=== PATIENT | female | born 1940 | race Caucasian/White ===

== ENCOUNTER → 2016-09-23 | Outpatient (CLI) | payer MEDICARE ==
[~2016-09-23] MED LIST: ALLEGRA180 MG PO; ASPIRIN LO-DOSE81 MG PO; CALCIUM 600 +1 EAC6 PO; CEFTIN500 MG PO; CORDARONE,PACE200 MG PO; COUMADIN ** 9/62 MG PO; CRESTOR40 MG PO; FIBERCON1 TAB PO; FISH OIL300 MG PO; FLONASE 50 MCG/16 GM NOSE; HYDRODIURIL25 MG PO; K-TAB ER20 MEQ; LASIX40 MG PO; NORVASC5 MG PO; POTASSIUM CHLO10 MEQ PO; RESTASIS MULTI5.5 ML OPHTH; ROBITUSSIN DM120 ML PO; THERA-VITE W/ B1 TAB PO; TYLENOL325 MG PO; ZAROXOLYN2.5 MG PO; ZESTRIL40 MG PO; ZITHROMAX250 MG PO
--- NOTE | ~2016-09-23 | PUL ---
PATIENT'S NAME: GEORGIA WONG [facility] AGE: 75 Y [address] ROOM: [place] [address] LOCATION: [facility] ADMIT DATE: 09/23/2016 Pulmonary DISCHARGE DATE: FAMILY PHYSICIAN: Merritt Don MD ATTENDING PHYSICIAN: SONNY IRVING NAME OF PROCEDURE: Six Minute Walk Test DATE OF PROCEDURE: September 23, 2016 TECH: LOKESH Jacobson REASON FOR EXAM: Medication usage RESULTS: The patient walked for 1165 feet at a pace of 2.2 miles/hour. The test was performed on room air. Her oxygen saturations were 97% of the at the beginning of the test ,then dropped to 80% during the test, then were 81% after the test. She had appropriate increases in her heart rate and blood pressure. She had no periods of rest. Her perceived dyspnea was 2/10 on the Channing scale. PHYSICIAN INTERPRETATION: The patient has no significant exercise limitations although she has significant desaturation and hypoxia on room air during exercise. MD MAGNOLIA SCHAEFFER/ayaan /[id number] dtt: 09/28/16 0754 NGOC RADU F dtd: 09/27/16 1037
--- NOTE | ~2016-09-23 | PUL ---
PATIENT'S NAME: GEORGIA WONG [facility] AGE: 75 Y [address] ROOM: [place] [address] LOCATION: [facility] ADMIT DATE: 09/23/2016 Pulmonary DISCHARGE DATE: FAMILY PHYSICIAN: Merritt Don MD ATTENDING PHYSICIAN: SONNY IRVING NAME OF PROCEDURE: Pulmonary Function Test DATE OF PROCEDURE: September 23, 2016 TECH: LOKESH Jacobson REASON FOR EXAM: Medication usage RESULTS: 1. FVC was 2.08 liters which is 87% of predicted and normal, FEV1 was 1.52 liters which is 86% of predicted and normal, and FEV1/FVC was 73% and normal. The flow volume curve did not reveal any significant airflow limitation. After bronchodilator administration FVC decreased to 2 liters, FEV1 decreased to 1.51 liters and FEV1/FVC was 76%. 2. DLCO was 11.5 with an adjusted DLCO of 12.2 which is 67% of predicted and normal. 3. Total lung capacity was 4.53 liters which is 109% of predicted and normal, and residual volume was 2.45 liters which is 140% of predicted and within normal limits for patient's demographics. PHYSICIAN INTERPRETATION: The patient has no airflow limitation and no significant bronchodilator response. Her diffusion capacity is normal. There is no evidence of restrictive lung disease. MD MAGNOLIA SCHAEFFER/ayaan /[id number] dtt: 09/28/16 0752 NGOC RADU F dtd: 09/27/16 1030
[2016-09-23 12:33] LABS: BASOPHIL % 0.7 %; EOSINOPHIL # 0.2 K/uL (0.0-0.5); EOSINOPHIL % 3.3 %; HEMOGLOBIN 11.9 g/dL (10.0-15.0); IMMATURE GRANULOCYTE % 0.3 %; LYMPHOCYTE # 1.7 K/uL (0.8-4.0); LYMPHOCYTE % 28.3 %; MCH 26.7 pg (27.0-34.0); MCHC 32.2 gm/dL (32.0-36.5); MCV 83.1 fl (83.0-98.0); MONOCYTE # 0.6 K/uL (0.0-1.0); MONOCYTE % 9.3 %; MPV 9.3 fl (9.4-12.4); NEUTROPHIL # (ANC) 3.5 K/uL (1.8-7.8); NEUTROPHIL % 58.1 %; NRBC % 0 /100WBC (0-0.00); PLATELET COUNT 175 K/uL (150-450); RBC 4.45 M/uL (3.50-5.50); RDW-CV 15.7 % (11.9-14.6)
[2016-09-23 12:54] LABS: ALBUMIN 3.5 gm/dL (3.5-5.0); ANION GAP 11.6 (10.0-19.0); CALCIUM 9.3 mg/dL (8.5-10.5); CREATININE 1.8 mg/dL (0.5-1.1); POTASSIUM 3.6 mMol/L (3.7-5.1); TOTAL BILIRUBIN 1.1 mg/dL (0.0-1.5); TOTAL PROTEIN 7.5 g/dL (6.0-8.4)
== END | disposition disaster alternative care site (69) ==
LOC: GLAB 11:59
PROVIDERS: Internal Medicine Interventional Cardiology
DX: Z51.81 Encounter for therapeutic drug level monitoring (principal); Z79.899 Other long term (current) drug therapy; I51.7 Cardiomegaly

== ENCOUNTER → 2016-09-28 | Outpatient (CLI) | payer MEDICARE ==
[2016-09-28 10:04] LABS: ANION GAP 10.3 (10.0-19.0); CALCIUM 9.3 mg/dL (8.5-10.5); CREATININE 1.7 mg/dL (0.5-1.1); POTASSIUM 3.3 mMol/L (3.7-5.1)
== END | disposition disaster alternative care site (69) ==
LOC: GRAD 09:29
PROVIDERS: Internal Medicine Interventional Cardiology
DX: N18.9 Chronic kidney disease, unspecified (principal); N28.89 Other specified disorders of kidney and ureter

== ENCOUNTER → 2016-09-28 | Outpatient (CLI) | payer MEDICARE | END | disposition disaster alternative care site (69) | LOC: LGSMG 11:32 | DX: N18.4 Chronic kidney disease, stage 4 (severe) (principal) ==

== ENCOUNTER → 2016-10-03 | Outpatient (CLI) | payer MEDICARE ==
[2016-10-03 16:35] LABS: ANION GAP 12.8 (10.0-19.0); CALCIUM 8.9 mg/dL (8.5-10.5); CREATININE 1.6 mg/dL (0.5-1.1); POTASSIUM 3.8 mMol/L (3.7-5.1)
== END | disposition disaster alternative care site (69) ==
LOC: LNHI 16:03
PROVIDERS: Internal Medicine Interventional Cardiology
DX: R53.83 Other fatigue (principal); R63.5 Abnormal weight gain

== ENCOUNTER 2016-10-09 10:41 | Emergency (ER) | payer MEDICARE ==
--- NOTE | ~2016-10-09 | ER ---
PATIENT'S NAME: GEORGIA WONG [facility] AGE: 75 Y [address] ROOM: [place] [address] LOCATION: [facility] ADMIT DATE: 10/09/2016 ER/Outpatient Report DISCHARGE DATE: 10/09/2016 FAMILY PHYSICIAN: Merritt Don MD ATTENDING PHYSICIAN: Vin Glez TIME OF ARRIVAL: 1041 hours. TIME OF EVALUATION: 1043 hours. CHIEF COMPLAINT: Low heart rate. HISTORY OF PRESENT ILLNESS: The patient is a 75-year-old female who presents to the emergency department today with a chief complaint of low heart rate. She reports that she was started on a beta-vinicio yesterday after seeing Dr. Patton on Monday, and when she checked her heart rate, it was in the 30s. She became concerned and came to the emergency department for further evaluation. She reports she has been having issues with shortness of breath with exertion for quite some time, and this is why the patient has been getting workups at Cardiology over the past few weeks. She reports she had an echocardiogram 2 weeks ago. She does report that they have been adjusting her medications. Denies any fevers or chills. No nausea or vomiting. No chest pain. No shortness of breath. No other concerns at this time. She actually feels at her baseline that she has been feeling over the past few months. PAST MEDICAL HISTORY: Paroxysmal atrial fibrillation, HOCM, with increased LVOT gradient at rest; chronic kidney disease, stage 3; hypertension; and diastolic congestive heart failure. PAST SURGICAL HISTORY: Cataract surgery. SOCIAL HISTORY: The patient denies any tobacco use. Reports occasional alcohol use. Denies any illicit drug use. ALLERGIES: NO KNOWN DRUG ALLERGIES. MEDICATIONS: PATIENT'S NAME: GEORGIA WONG [facility] AGE: 75 Y [address] ROOM: [place] [address] LOCATION: [facility] ADMIT DATE: 10/09/2016 ER/Outpatient Report DISCHARGE DATE: 10/09/2016 FAMILY PHYSICIAN: Merritt Don MD ATTENDING PHYSICIAN: Vin Glez Please see list. REVIEW OF SYSTEMS: All systems are reviewed by myself and are negative with the exception of those discussed in the HPI and Past Medical History. PHYSICAL EXAMINATION: VITAL SIGNS: Weight 73.9 kg, blood pressure 128/65, pulse 41, respiratory rate 16, temperature 97.5, and oxygen saturation 99% on room air. GENERAL: The patient is a 75-year-old female who appears stated age, in no acute distress at this time. HEENT: Normocephalic, atraumatic. Pupils are equal, round, and reactive to light. NECK: Supple. There is no nuchal rigidity. CARDIOVASCULAR: Bradycardic. Positive murmur. No rubs or gallops. LUNGS: Clear to auscultation bilaterally. No wheezes, rales, or rhonchi. ABDOMEN: Soft, nontender, and nondistended. No rebound, rigidity, or guarding. MUSCULOSKELETAL: The patient moves all 4 extremities. SKIN: Warm and dry. There are no rashes or lesions noted. LABS AND X-RAYS: CBC is normal. EKG was obtained, is interpreted by myself, and shows junctional rhythm with a rate of 34, left axis deviation, QTc of 45. No ST elevation. There is ST depression in V5 and V6 which is not changed from 07/25/2014. Chest x-ray shows stable cardiomegaly. PTT is 36, PT is 17.8, and INR is 1.6. CMP is unremarkable except for BUN 29 and creatinine 1.7. AST is 57 and ALT is normal. Magnesium is normal. Cardiac enzymes are normal. ProBNP is 6027. IMPRESSION: 1. Asymptomatic bradycardia. 2. Chronic kidney disease, stage 3. 3. Initial visit. EMERGENCY DEPARTMENT COURSE: The patient was brought back to the examination room. Seen and evaluated by myself. IV was established. Laboratory analysis and imaging were obtained as described above. The patient is asymptomatic with this bradycardia. She does report that she took the metoprolol for the first time yesterday. This is 25 mg p.o. daily, extended release. The patient does have a history of bradycardia in the past. Cardiac workup is essentially unremarkable or unchanged from previous. I have contacted Dr. Sanabria with Cardiology who is on-call for the patient's primary auto damage trainee, Dr. Patton, and discussed the case with him. He has recommended followup with Dr. Evans tomorrow in the PATIENT'S NAME: GEORGIA WONG [facility] AGE: 75 Y [address] ROOM: [place], [place] [address] LOCATION: [facility] ADMIT DATE: 10/09/2016 ER/Outpatient Report DISCHARGE DATE: 10/09/2016 FAMILY PHYSICIAN: Merritt Don MD ATTENDING PHYSICIAN: Vin Glez clinic as she is asymptomatic at this time. Her heart rate is now in the upper forties. I have discussed the results with the patient and her friend who is at bedside. She does wish to go home at this time. I have recommended rest. No exertion. She is to follow up with Dr. Evans tomorrow in the clinic. I have discussed return to care instructions including chest pain, shortness of breath, syncope, near syncope, or any other concerns, to return to the emergency department as soon as possible. The patient is agreeable. Her friend is agreeable without further questions at this time. DISPOSITION: The patient is discharged to home in good condition. DO HUMERA ARANDA/modl /[id number] d: 10/09/16 1534 t: 10/11/16 0757, OUTPATIENT REPORT
[~2016-10-09 10:41] MED LIST changes: -LASIX40 MG PO; -RESTASIS MULTI5.5 ML OPHTH; -ZAROXOLYN2.5 MG PO
[2016-10-09 11:02] LABS: BASOPHIL % 0.6 %; EOSINOPHIL # 0.2 K/uL (0.0-0.5); EOSINOPHIL % 2.2 %; HEMATOCRIT 36.9 % (33.0-46.0); HEMOGLOBIN 11.4 g/dL (10.0-15.0); IMMATURE GRANULOCYTE % 0.3 %; LYMPHOCYTE # 1.7 K/uL (0.8-4.0); LYMPHOCYTE % 24.8 %; MCHC 30.9 gm/dL (32.0-36.5); MCV 84.2 fl (83.0-98.0); MONOCYTE # 0.7 K/uL (0.0-1.0); MONOCYTE % 10.7 %; MPV 9.1 fl (9.4-12.4); NEUTROPHIL # (ANC) 4.3 K/uL (1.8-7.8); NEUTROPHIL % 61.4 %; NRBC % 0 /100WBC (0-0.00); PLATELET COUNT 152 K/uL (150-450); RBC 4.38 M/uL (3.50-5.50); WBC 6.9 K/uL (4.0-11.0)
[2016-10-09 11:11] LABS: INR - (THERAPEUTIC) 1.6 (0.9-1.1); PROTIME 17.8 SECONDS (9.6-11.1); PTT 36 SECONDS (25-32)
[2016-10-09 11:21] LABS: ALBUMIN 3.4 gm/dL (3.5-5.0); ALK PHOS 86 IU/L (33-138); ALT 45 IU/L (12-78); ANION GAP 13.9 (10.0-19.0); AST 57 IU/L (10-40); BLOOD UREA NITROGEN 29 mg/dL (6-24); CALCIUM 8.8 mg/dL (8.5-10.5); CHLORIDE 104 mMol/L (96-110); CO2 28 mMol/L (22-32); CPK 148 IU/L (21-215); CREATININE 1.7 mg/dL (0.5-1.1); ESTIMATED GFR (MDRD EQUATION) 29; MAGNESIUM 2.6 mg/dL (1.3-2.6); POTASSIUM 3.9 mMol/L (3.7-5.1); SODIUM 142 mMol/L (135-145); TOTAL BILIRUBIN 0.9 mg/dL (0.0-1.5); TOTAL PROTEIN 7.2 g/dL (6.0-8.4)
== END 2016-10-09 13:08 | disposition disaster alternative care site (69) ==
LOC: GMED 10:41
PROVIDERS: Emergency Medicine
DX: R00.1 Bradycardia, unspecified (principal); I13.0 Hypertensive heart and chronic kidney disease with heart failure and stage 1 through stage 4 chronic kidney disease, or unspecified chronic kidney disease; N18.3 Chronic kidney disease, stage 3 (moderate); I50.30 Unspecified diastolic (congestive) heart failure; I48.0 Paroxysmal atrial fibrillation; Z79.01 Long term (current) use of anticoagulants; Z79.899 Other long term (current) drug therapy

== ENCOUNTER → 2016-10-13 | Outpatient (CLI) | payer MEDICARE ==
[~2016-10-13] MED LIST changes: +LASIX40 MG PO; +RESTASIS MULTI5.5 ML OPHTH; +ZAROXOLYN2.5 MG PO
== END | disposition disaster alternative care site (69) ==
LOC: LGSMG 14:00
DX: N17.9 Acute kidney failure, unspecified (principal); N18.9 Chronic kidney disease, unspecified

== ENCOUNTER → 2016-10-17 | Outpatient (CLI) | payer MEDICARE ==
--- NOTE | ~2016-10-17 | ESTC ---
Cardiac Perfusion Imaging Demographics Patient Name JUDITH Millan Gender Female Patient Number [id number] Race Visit Number [id number] Ethnicity Corporate ID Room Number Accession Number [id number] Height 61 inches Date of 1940 Weight 158 pounds Booker Interpreting Physician Nathan Date of study 10/17/2016 Booker Supervising /SINTIA GOLDEN Technologist Cande Celeste Ordering Physician Nathan Stress Booker weight reducing technician Stress ECG Reading Nathan Nurse Ghada Verduzco RN Physician Booker The procedure was explained in detail to the patient. Risks, complications and alternative treatments were reviewed. Written consent was obtained. Medications Reviewed with Patient prior to Procedure. Procedure Admit Source:Other. Procedure Type: Nuclear Stress Test:Pharmacological, Lexiscan, Cardiolite Stress Test Procedure Start time: 10/17/2016 00:00 Indications: Chest pain and Dyspnea with exertion. Risk Factors The patient risk factors include:peripheral arterial disease, hypercholesterolemia, family history of premature CAD and renal failure. Conclusions Summary Perfusion Images: The overall quality of the study is good. Left ventricular cavity is noted to be normal on the stress and rest studies. There is no evidence of abnormal lung activity. The right ventricle is not visualized and cannot be assessed. Stress SPECT images demonstrate homogenous tracer distribution throughout the myocardium except for a mild decrease uptake in the area involving the basal and mid anterior wall on rest images likely due to artifact. Gated SPECT imaging reveals normal myocardial thickening and wall motion. The left ventricular ejection fraction was calculated to be 68%. Impression Pt had resting bradycardia (junctional rhythm) and did not achieve target heart rate with exercise stress test with Rivera protocol. Exercise was stopped due to fatgue. The stress test was then changed to regadenoson stress test. ECG portion of stress test is clinically negative for ischemia by diagnostic criteria. Myocardial perfusion imaging is probably normal. The anterior wall defect worse on rest images is consistent with artifact. Overall left ventricular systolic function was normal without regional wall motion abnormalities. Clinical correlation is recommended. Evaluate patient for need for pacemaker Stress Protocols Resting ECG Junctional rhythm at 56 bpm, Poor R wave progression in anterior leads Resting HR:56 bpm Pre-stress physical exam: AOx 3, states becomes short of breath with activity/walking. Started with a treadmill and she had to stop in stage 2 due to extreme shortness of breath. Peak heart rate was 88 bpm. The quality of EKG tracings during exercise was suboptimal. No significant ST-T wave changes were seen. She denied any chest pain. Her heart rhythm was observed to be sinus rhythm with PACs during recovery. Changed test to Nicki scan due to patient not being able to reach target heart rate. Stress Protocol:Pharmacologic - Lexiscan Peak HR:91 bpm HR/BP product:[id number] Peak BP:149/86 mmHg Predicted HR: 143 bpm % of predicted HR: 64 Test duration: 00:06 min Reason for termination:Infusion complete ECG Findings No ECG changes suggestive of ischemia. Arrhythmias Sinus rhythm with PACs and junctional rhythm Symptoms Shortness of breath. Stress Interpretation ECG portion of stress test is negative for ischemia by diagnostic criteria. Pt was not able to reach target heart rate by Rivera protocol and developed dyspnea. Patient getting holter monitor to evaluate heart rate and arrhythmias and to evaluate for need for pacemaker. Discussed in detail with patient and her daughter. Imaging Results Summed scores - Summed stress score: 6 - Summed rest score: 4 - Summed difference score: 2 Stress ejection Ejection fraction:68 % EDV :137 ml ESV :44 ml Stroke volume :93 ml LV mass :169 gr Imaging Protocols Rest Stress Isotope:Tc99m Sestamibi IV Isotope: Tc99m Sestamibi IV Isotope dose:10.1 mCi Isotope dose:29.6 mCi Date:10/17/2016 07:05 Date:10/17/2016 09:25 Technique: SPECT Technique: Gated Supine SPECT Supine Scan Time:45-60 minutes post Scan Time:45-60 minutes post injection injection Procedure Medications - Regadenoson (Lexiscan) 0.4 mg IV over 10-15 sec. I.V. 0.4 mg. Medical History Admission Data Admission date: 10/17/2016 Admission Time: 06:42 Hospital Status: Outpatient. Signatures dtt: BOOKER ERAZO dtd: 10/17/16 0000 Physician Self Edit
== END | disposition disaster alternative care site (69) ==
LOC: GRAD 06:42
DX: I25.10 Atherosclerotic heart disease of native coronary artery without angina pectoris (principal); I73.9 Peripheral vascular disease, unspecified; R00.1 Bradycardia, unspecified; R06.00 Dyspnea, unspecified; R53.83 Other fatigue; E78.00 Pure hypercholesterolemia, unspecified; Z82.49 Family history of ischemic heart disease and other diseases of the circulatory system
CPT/HCPCS: A9500; J0280; J0461; J2785

== ENCOUNTER → 2016-11-11 | Outpatient (CLI) | payer MEDICARE | LOC: LGSMG 13:02 | DX: N17.9 Acute kidney failure, unspecified (principal); N18.9 Chronic kidney disease, unspecified ==

== ENCOUNTER 2016-11-15 13:36 | Inpatient (IN) | payer MEDICARE ==
[~2016-11-15] VITALS: Ht 156.2 cm; Wt 69.0 kg
--- NOTE | ~2016-11-15 | CON ---
PATIENT'S NAME: GEORGIA WONG [facility] AGE: 75 Y [address] ROOM: [id number] [place], [place] [address] LOCATION: [facility] ADMIT DATE: 11/15/2016 Consultation DISCHARGE DATE: FAMILY PHYSICIAN: Merritt Don MD ATTENDING PHYSICIAN: Kilo Harley DATE OF CONSULTATION: 11/15/2016 REFERRING PHYSICIAN: AIDE MARTEL REASON FOR CONSULTATION: ALFONSO on CKD, hypokalemia. REFERRING PHYSICIAN: Kilo Harley MD. 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 The patient's blood pressure was also above the acceptable range at that time. We discontinued amlodipine and started on losartan; however, she started to feel bad and she had significant shortness of breath, came to see her Dr. Harley in the [facility], found to have a creatinine of 1.91 from a baseline of 1.5 and was also found to have significant hypokalemia. The patient was admitted subsequently to [facility] for further management and evaluation. During my evaluation, the patient does not have any more signs of fluid overload, does not have a JVD. Lung sounds clear without any significant bibasilar crackles or any other signs of volume overload. No dependent edema; however, the patient continues to complain of shortness of breath. The patient apparently was taking a high dose of Lasix, but did not pick pack worker her metolazone since last seen, although she has mentioned to Dr. Harley that she has not filled up her losartan prescription, but she mentioned that she is now currently taking the losartan. Her blood pressure today in the clinic and also in the hospital was in the 140s. She denied any significant chest pain or any palpitation; however, mentioned about some orthopnea over the last few days. She denied any urinary symptoms including dysuria, urgency, hesitancy, or nocturia. Regarding renal function, her creatinine was 0.8-1.1 till July 2015; September 2016, her creatinine went up to 1.8, possibly with aggressive dialysis. We held the dialysis and creatinine subsequently improved to 1.44, but she had become volume overloaded, we had to hold the diuretic, creatinine went up to 1.5 after starting the diuretic and as mentioned above, the creatinine was 1.91 at an outside facility after increasing the dose of Lasix. UA shows 2+ protein and 1+ blood with a PC ratio of 0.7.PATIENT'S NAME: GEORGIA WONG [facility] AGE: 75 Y [address] ROOM: [place] [address] LOCATION: [facility]PCU ADMIT DATE: 11/15/2016 Consultation DISCHARGE DATE: FAMILY PHYSICIAN: Merritt Don MD ATTENDING PHYSICIAN: Kilo Harley REVIEW OF SYSTEMS: GENERAL: No fever. No chills or rigor. HEENT: No sore throat. No sinus congestion. CVS: No chest pain. Shortness of breath as mentioned in the HPI. Currently, no significant leg swelling; however, the patient has apparently had significant leg swelling on Monday. RESPIRATORY: Shortness of breath and chronic cough. No significant wheezing. GENITOURINARY: No pain with urination. No increased frequency. No nocturia. GASTROINTESTINAL: No abdominal pain. No abdominal distention. No nausea or vomiting. NEUROLOGIC: No weakness. No seizures. SKIN: No rash. No itching. ALLERGIES: No seasonal allergy. No hayfever. ENDOCRINE: No heat intolerance. No cold intolerance. PSYCHIATRIC: No sadness. No crying spells. No history of panic attack. PAST MEDICAL HISTORY: 1. Hypertension for 30 years. 2. Coronary artery disease, status post PCI x2. 3. Peripheral vascular disease. 4. Atrial fibrillation. 5. Chronic cough. 6. Hypertrophic cardiomyopathy without features of obstruction. 7. CKD stage 3 with some proteinuria. PAST SURGICAL HISTORY: 1. Cataract surgery. 2. Heart catheterization with stent placement in 2012. MEDICATIONS: 1. Amiodarone 100 mg daily. 2. Losartan 12.5 mg daily. 3. Aspirin 81 mg daily. 4. Vicenta p.r.n. 5. Citracal/vitamin D 1 tab daily. 6. Crestor 40 mg daily. 7. Fexofenadine 180 mg daily. 8. Fiber-Caps fish oil 1000 mg capsule daily. 9. Fish oil omega-3 one capsule daily. 10. Fluticasone 2 sprays once daily. 11. Lasix 20 mg once a day, which has been increased to 40 mg on Monday. 12. Multivitamin 1 tablet daily. 13. Potassium chloride 20 mEq p.o. daily. 14. Warfarin 2 mg p.o. daily.PATIENT'S NAME: GEORGIA WONG [facility] AGE: 75 Y [address] ROOM: [place] [address] LOCATION: [facility]PCU ADMIT DATE: 11/15/2016 Consultation DISCHARGE DATE: FAMILY PHYSICIAN: Merritt Don MD ATTENDING PHYSICIAN: Kilo Harley ALLERGIES: NORVASC AND ALDACTONE. SOCIAL HISTORY: Drinks alcohol socially. No significant history of smoking or illicit drug use. FAMILY HISTORY: Significant for cancer, coronary artery disease, type 2 diabetes, and hypertension, but no significant history of renal failure or dialysis. OBJECTIVE: VITAL SIGNS: Blood pressure 140s/70s, heart rate in 60s, respiratory rate 14, and temperature 98.2. PHYSICAL EXAMINATION: GENERAL: Not in apparent distress. HEAD: Moist mucous membranes. Bilateral PERRLA, EOMI. NECK: No JVD, thyromegaly, or lymphadenopathy. CVS: S1 and S2 normal, regular rate and rhythm. No murmur, rub, or gallop. CHEST: Bilateral air entry equal. No wheeze or rales. ABDOMEN: Soft, nontender, nondistended. Bowel sounds present. EXTREMITIES: No cyanosis, clubbing, jaundice. No dependent edema. MUSCULOSKELETAL: No limitation of range of motion. SKIN: No pallor, cyanosis, icterus. FLUORESCENT SOLUTION MIXER: Alert and oriented x3. No gross findings. ASSESSMENT/PLAN: 1. Acute kidney injury on chronic kidney disease. ALFONSO query secondary to overdiuresis; however, the patient had significant fluid overload on her last clinic visit. We increased the Lasix to 40 daily instead of 20 daily and started on metolazone 2.5 daily; however, the patient never filled up metolazone, so the patient is currently only taking Lasix 40 daily. Today, does not have any dependent edema, but still continues to have significant shortness of breath. We will send a UA, urine lytes including sodium, potassium, creatinine osmolality. We will put a Hare and maintain it for strict intake and output monitoring. We will get daily standing weight. Avoid nephrotoxic exposure. Avoid hemodynamic instability and may keep MAP more than 65. Regarding chronic kidney disease, she has proteinuric CKD, possibly with a baseline around 1.5. Although she has hypertension for long time, but her hypertension was never severe enough to properly explain this degree of kidney disease. She had no history of apparent nephrotoxic exposure in the past. We are contemplating doing a kidney biopsy to rule out any other potential alternative etiology. Serology workup and infectious workup which has been sent from the clinic is currently pending. For renal protection as well as blood pressure control, we started the patient on losartan as the patient complained of cough with lisinopril; however, in the context of an ALFONSO, we will hold the losartan for now and may restart when her renal function returns back to her baseline.PATIENT'S NAME: GEORGIA WONG [facility] AGE: 75 Y [address] ROOM: [place] [address] LOCATION: [facility]PCU ADMIT DATE: 11/15/2016 Consultation DISCHARGE DATE: FAMILY PHYSICIAN: Merritt Don MD ATTENDING PHYSICIAN: Kilo Harley 2. Shortness of breath, questionable etiology. I do not think that she is volume overloaded at this point. Has no dependent edema, no JVD, dry mucous membrane, and lung sounds clear without any significant bibasilar rales. We will get an echocardiogram to see biventricular function as well as volume status. We would like to get an evaluation from Cardiology here to comment about her heart failure and possible treatment. The patient also carries the diagnosis of query amiodarone toxicity and she was worked up in the past with PFT, a 6-minute walk test, and chest CT scan. We may need to get evaluation from Pulmonary team as well. 3. Hypokalemia. The patient could not tolerate IV potassium supplementation, we will switch to p.o. supplementation, and we will closely monitor the patient's clinical status and heart rate. 4. Proteinuria. As mentioned above, the patient has 0.7 g proteinuria with a baseline creatinine of 1.5. I would like to do a renal biopsy to rule out any other potential etiology other than hypertensive nephrosclerosis. Serologic and infectious workup for other glomerulonephritis is pending. Thank you for allowing me to participate in this patient's care. We will closely monitor the patient's progress along with you. AIDE MARTEL MD /modl /[id number] d: 11/16/16 0013 t: 11/18/16 1432, CONSULTATION REPORT
--- NOTE | ~2016-11-15 | ECHO ---
Transthoracic Echocardiography Report (TTE) Demographics Patient Name GEORGIA OWNG Date of Study 11/16/2016 Patient Number [id number] Visit Number [id number] Date of 1940 Room Number G6306 Accession Number [id number] Gender Female Age 75 year(s) Referring Florencia Pagan Film Splicer Stepan Brown RVT Physician MD Cherri Boles MD Physician Interpreting [place] Prospecting Driller Helper Physician Sanjuana HANSON Supervising Ordering Physician Kapil Boles MD/SINTIA HANSON Nurse Stress Teacher Of The Visually Impaired Conclusions Contractility Score Summary Normal Left Ventricular contractility was noted. Summary The estimated left ventricular ejection fraction is 55-60%. Hypertrophic obstructive cardiomyopathy. Resting LVOT velocity is 3.8 m/s, with a peak gradient of 58 mmHg, and mean gradient of 26 mmHg suggestive of left ventricular outflow tract obstruction at rest. Severe concentric left ventricular hypertrophy. Diastolic flow assessment reveals a pseudonormal pattern consistent with Grade II diastolic dysfunction . The left atrium is severely dilated by LA volume index measurement. Procedure Type of Study TTE procedure:2D Echocardiogram. Procedure Date Date: 11/16/2016 Start: 08:48 AM Study Location: Inpatient Portable Technical Quality: Adequate visualization Additional Indications:volume status heart failure Appropriate Use Criteria: 9 Patient Status: Routine HR: 43 bpm BP: 128/60 mmHg M-Mode/2D Measurements LV Diastolic Dimension: 4.05 cm LV Systolic Dimension: 2.26 cm LV Septum Diastolic: 1.82 cm LV PW Diastolic: 1.76 cm AO Root Dimension: 2.1 cm Cardiac Output: 8.38 l/min AV Cusp Separation: 1.4 cm RV Diastolic Dimension: 1.95 cm LA volume: 131 ml LVOT: 2 cm RV Base: 2.4 cm LVOT VTI: 62.1 cm RV Mid: 2.18 cm LV Stroke volume: 194.99 ml TAPSE: 2.39 cm TDI-S': 15.1 cm/s Doppler Measurements AV Peak Velocity: 2.78 m/s MV Peak E-Wave: 1.25 m/s AV Peak Gradient: 30.91 mmHg MV Peak A-Wave: 1.04 m/s AV Mean Gradient: 14 mmHg MV E/A Ratio: 1.2 LVOT Peak Velocity: 0.93 m/s MV P1/2t: 155 msec TR Gradient:28.09 mmHg PV Peak Velocity: 0.87 m/s Estimated RAP:10 mmHg PV Peak Gradient: 3.01 mmHg Estimated RVSP: 38 mmHg Estimated PASP: 38.09 mmHg E' Septal Velocity: 0.03 m/s A' Septal Velocity: 0.05 m/s E' Lateral Velocity: 0.05 m/s A' Lateral Velocity: 0.07 m/s Findings Left Ventricle Severe concentric left ventricular hypertrophy. Diastolic assessment reveals Grade II pseudonormal diastolic function . Right Ventricle Normal right ventricle structure and function. Left Atrium The left atrium is severely dilated by LA volume index measurement. Right Atrium IVC measures 1.04 cm with inspiratory collapse. Mitral Valve Moderate to severe mitral annular calcification. Mild mitral regurgitation by color Doppler. Aortic Valve The aortic valve is mildly sclerotic. Resting LVOT velocity is 3.8 m/s, with a peak gradient of 58 mmHg, and mean gradient of 26 mmHg suggestive of left ventricular outflow tract obstruction at rest. Tricuspid Valve Mild tricuspid regurgitation by color Doppler. The pulmonary pressure (RVSP) is 38 mmHg. Pulmonic Valve Mild pulmonic valve regurgitation by color Doppler. Pericardial Effusion No evidence of pericardial effusion. Miscellaneous Visualized portions of the aortic root and ascending aorta appear normal in size. Pleural Effusion No evidence of pleural effusion. Contractility Score LV regional wall motion:(0-Non visualized 1-Normal 2-Hypokinesis 3-Akinesis 4-Dyskinesis 5-Aneurysm) Signature dtt: SANJUANA IRVING dtd: 11/16/16 0848 Physician Self Edit
--- NOTE | ~2016-11-15 | CON ---
PATIENT'S NAME: GEORGIA WETZEL [facility] AGE: 75 Y [address] ROOM: [address] [address] LOCATION: GPCU ADMIT DATE: 11/15/2016 Consultation DISCHARGE DATE: 11/16/2016 FAMILY PHYSICIAN: Merritt Don MD ATTENDING PHYSICIAN: Kilo Harley DATE OF CONSULTATION: 11/16/2016 REFERRING PHYSICIAN: [facility] CONSULTATION REQUESTING PROVIDER: Kilo Harley MD REASON FOR CONSULTATION: Bradycardia. HISTORY OF PRESENTING ILLNESS: The patient is well known to [facility] Card[facility]. She used to see Dr. Marcus and her most recent visit with Dr. Marcus was in October in [place]. She has been complaining of dyspnea on exertion and more recently, she has been found to be bradycardic. She also has history of obstructive cardiomyopathy with increased LVOT gradient with Valsalva as well as coronary artery disease status post PCI of the LAD in 2000. She has also been recently struggling with her renal insufficiency, and her kidney function has worsen in the past year or so. We have been adjusting her diuretics, and her LILLY inhibitor as well as hydrochlorothiazide is on hold due to her worsening renal function. I have seen her before in my clinic as well. Overall, she does not have any evidence of significant volume overload. Her symptoms of dyspnea are likely secondary to her profound bradycardia. During interview, she is resting in bed comfortably. She does not have any chest pain, tightness, pressure, heaviness, and no jaw pain. She does not have any shortness of breath while she is at rest. She does report dyspnea with minimal exertion. No recent weight gain. Overall, she is doing stable. She does not have any presyncope or syncopal episodes as well. No nausea, vomiting, diarrhea, constipation, fever, chills, or stroke like symptoms. She does not have any skin rashes. She was admitted from the clinic after seeing Dr. Harley. Her creatinine was 1.9. She did have hypokalemia as well at that time. She did have a few doses of Lasix prior to the admission. REVIEW OF SYSTEMS: Discussed with the patient and pertinent positives and negatives mentioned in PATIENT'S NAME: GEORGIA WETZEL [facility] AGE: 75 Y [address] ROOM: [place] [address] LOCATION: GPCU ADMIT DATE: 11/15/2016 Consultation DISCHARGE DATE: 11/16/2016 FAMILY PHYSICIAN: Merritt Don MD ATTENDING PHYSICIAN: Kilo Harley the History of Present Illness. PAST MEDICAL HISTORY: 1. Obstructive cardiomyopathy. 2. Hypertension. 3. Coronary artery disease status post PCI. 4. PVD. 5. Paroxysmal atrial fibrillation. 6. Chronic cough. 7. CKD, stage 3 with 1 g proteinuria, 24 hours. PAST SURGICAL HISTORY: Cataract surgery. ALLERGIES: ADVERSE REACTION TO MEDICATIONS: LISINOPRIL. SHE DEVELOPS COUGH WITH THAT. MEDICATIONS: In the hospital: 1. Flonase 2 puffs b.i.d. 2. Lacri-Lube at bedtime. 3. Teargen 1 drop b.i.d. 4. Aspirin 81 daily. 5. Amiodarone 100 mg daily. 6. Crestor 20 mg p.o. at bedtime. 7. FiberCon 3 tablets p.o. b.i.d. 8. Fish oil 1000 daily. 9. KCl 10 mEq at bedtime. 10. Os-Gio plus vitamin D 500 daily. FAMILY HISTORY: No premature family history of sudden cardiac . SOCIAL HISTORY: The patient does not smoke. No illicit drug abuse or alcohol abuse. PROCEDURES: Cardiovascular Procedures: 1. Cardiac catheterization with 80% proximal LAD, status post 3.5 x 8 mm velocity stent in 02/2001. 2. Echocardiogram: Latest echocardiogram with normal LV systolic function of 60%. There is LVOT obstruction, mild diastolic dysfunction. 3. Holter study that was done in 2014 with heart rate in the 40s to 80s. 4. Stress test in 2015 with normal perfusion. No evidence of reversible defect. PATIENT'S NAME: GEORGIA WETZEL [facility] AGE: 75 Y [address] ROOM: [place] [address] LOCATION: GPCU ADMIT DATE: 11/15/2016 Consultation DISCHARGE DATE: 11/16/2016 FAMILY PHYSICIAN: Merritt Don MD ATTENDING PHYSICIAN: Kilo Harley 5. Vascular carotid duplex that was done revealed 50% to 69% left ICA, right ICA was less than 50%. LABORATORY DATA: Sodium 133, potassium 3.9, chloride 91, CO2 of 35, glucose 87, BUN 25, and creatinine 1.7. GFR 29. LDL 81. CPK 144, CK-MB 2.3, and troponin 0.048. ProBNP is 4649. WBC 7.1, H and H 12.0 and 36.0, and platelets 177,000. INR is 3.2. PHYSICAL EXAMINATION: VITAL SIGNS: Blood pressure is 124/56, heart rate is in the 40s. She is afebrile. O2 saturation is 95% on room air. I's and O's 840/1075, negative 235. CONSTITUTIONAL: The patient is well-nourished, well-developed. She is not in any apparent distress. SKIN: Warm and dry. RESPIRATORY: Nonlabored. Clear breath sounds bilaterally. No wheezing or crackles. HEART: S1 and S2. Regular rate and rhythm. A 3/6 systolic murmur heard throughout the precordium. Best in the right second right intercostal space. ABDOMEN: Nontender. Soft, bowel sounds positive. EXTREMITIES: No significant lower extremity edema. NEUROLOGIC: Grossly intact. Able to move all extremities against gravity. MUSCULOSKELETAL: Good range of motion. IMPRESSION AND PLAN: 1. Obstructive cardiomyopathy with evidence of Valsalva induced left ventricular outflow tract gradient. 2. Paroxysmal atrial fibrillation, maintaining sinus, however, she is quite bradycardic in the 30s to 40s, on amiodarone 100 mg daily. She is on oral anticoagulation with Coumadin and her INR is 2.9. 3. Coronary artery disease status post percutaneous coronary intervention of the left anterior descending in 2000. She does not have any anginal symptoms. Continue aspirin. Unable to use beta blockers due to profound bradycardia. Continue statin. During the stress test, she did have resting bradycardia with junctional rhythm. She did not reach her target heart rate with the Rivera protocol. She reached only 64% of her max predicted heart rate at that time. She developed significant dyspnea. The Holter was ordered at that time to evaluate for need for pacemaker. 4. Chronic kidney disease, stage 3 with proteinuria. I appreciate Nephrology help. They are planning on biopsy. This is not urgent. 5. The patient really has paroxysmal atrial fibrillation and she is on only 100 mg of amiodarone with significant bradycardia in the 30s. She also has significant dyspnea, and I do not think her dyspnea is secondary to congestive heart failure or volume overload. I really think this is PATIENT'S NAME: GEORGIA WETZEL [facility] AGE: 75 Y [address] ROOM: G6306 [place], [place] [address] LOCATION: GPCU ADMIT DATE: 11/15/2016 Consultation DISCHARGE DATE: 11/16/2016 FAMILY PHYSICIAN: Merritt Don MD ATTENDING PHYSICIAN: Kilo Harley secondary to her chronotropic incompetence and slow heart rate. I do think, she will benefit from pacemaker. She is reporting that she would like to go to [facility] for this and would like to continue to follow with Dr. Marcus. Thank you very much for allowing us to participate in the care of Ms. Wetzel. We will continue to follow the patient and proceed with pacemaker implantation here if she is agreeable. SONNY IRVING MD AT/modl /[id number] d: 11/16/16 1531 t: 11/16/16 1704, CONSULTATION REPORT
[~2016-11-15 13:36] MED LIST changes: -LASIX40 MG PO; -RESTASIS MULTI5.5 ML OPHTH; -ZAROXOLYN2.5 MG PO
[2016-11-15] MEDS ORDERED: RESTASIS MULTI5.5 ML OPHTH (14:43)
[2016-11-15] MEDS ORDERED: LASIX40 MG PO (14:43)
[2016-11-15] MEDS ORDERED: ZAROXOLYN2.5 MG PO (14:44)
[2016-11-15] MEDS ORDERED: COUMADIN ** 9/62 MG PO (14:50)
[2016-11-15 15:55] LABS: INR - (THERAPEUTIC) 2.98 (0.92-1.07); PROTIME 31.6 SECONDS (9.8-11.4)
[2016-11-15 16:03] LABS: CALCIUM 9.6 mg/dL (8.5-10.5); CREATININE 1.8 mg/dL (0.5-1.1)
[2016-11-15 16:09] LABS: ANION GAP 13.2 (10.0-19.0); POTASSIUM 2.2 mMol/L (3.7-5.1)
[2016-11-15 17:02] LABS: BILIRUBIN URINE NEGATIVE (NEGATIVE); BLOOD URINE 25 /UL (NEGATIVE); GLUCOSE URINE NEGATIVE (NEGATIVE); KETONE URINE NEGATIVE (NEGATIVE); LEUKOCYTES URINE NEGATIVE /UL (NEGATIVE); NITRITE URINE NEGATIVE (NEGATIVE); PROTEIN URINE 15 mg/dL (NEGATIVE); UROBILINOGEN URINE NORMAL (NORMAL)
[2016-11-15 17:06] LABS: COLOR URINE STRAW (YELLOW); TURBIDITY URINE CLEAR (CLEAR)
[2016-11-15 17:11] LABS: RBC URINE NEGATIVE #/HPF (NEGATIVE); WBC URINE NEGATIVE #/HPF (NEGATIVE)
[2016-11-15 17:12] LABS: BACTERIA URINE NEGATIVE (NEGATIVE); EPITHELIAL URINE NEGATIVE #/HPF (NEGATIVE); MUCUS URINE 1+ (NEGATIVE)
[2016-11-16 04:09] LABS: BASOPHIL % 0.4 %; EOSINOPHIL # 0.1 K/uL (0.0-0.5); EOSINOPHIL % 1.6 %; HEMATOCRIT 36.9 % (33.0-46.0); IMMATURE GRANULOCYTE % 0.3 %; LYMPHOCYTE # 1.9 K/uL (0.8-4.0); LYMPHOCYTE % 27.3 %; MCH 25.8 pg (27.0-34.0); MCHC 32.5 gm/dL (32.0-36.5); MONOCYTE # 0.9 K/uL (0.0-1.0); MONOCYTE % 12.4 %; MPV 9.3 fl (9.4-12.4); NEUTROPHIL # (ANC) 4.1 K/uL (1.8-7.8); NRBC % 0 /100WBC (0-0.00); PLATELET COUNT 177 K/uL (150-450); RBC 4.65 M/uL (3.50-5.50); WBC 7.1 K/uL (4.0-11.0)
[2016-11-16 04:12] LABS: MCV 79.4 fl (83.0-98.0)
[2016-11-16 04:32] LABS: INR - (THERAPEUTIC) 3.21 (0.92-1.07); PROTIME 34.1 SECONDS (9.8-11.4)
[2016-11-16 04:33] LABS: ALBUMIN 3.3 gm/dL (3.5-5.0); CALCIUM 9.2 mg/dL (8.5-10.5); CREATININE 1.7 mg/dL (0.5-1.1); PHOSPHORUS 3.6 mg/dL (2.5-4.9)
[2016-11-16 04:39] LABS: ANION GAP 10.9 (10.0-19.0); MAGNESIUM 2.7 mg/dL (1.8-2.6); POTASSIUM 3.9 mMol/L (3.7-5.1)
== END 2016-11-16 13:00 | disposition hospice, home (50) | DRG 682 ==
LOC: GPCU 13:36
PROVIDERS: Internal Medicine Nephrology; ADMIT Family Medicine
DX: N17.9 Acute kidney failure, unspecified (principal); I50.31 Acute diastolic (congestive) heart failure; I42.1 Obstructive hypertrophic cardiomyopathy; R00.1 Bradycardia, unspecified; I48.0 Paroxysmal atrial fibrillation; I13.0 Hypertensive heart and chronic kidney disease with heart failure and stage 1 through stage 4 chronic kidney disease, or unspecified chronic kidney disease; N18.3 Chronic kidney disease, stage 3 (moderate); E78.00 Pure hypercholesterolemia, unspecified; E87.6 Hypokalemia; I25.10 Atherosclerotic heart disease of native coronary artery without angina pectoris; Z95.5 Presence of coronary angioplasty implant and graft; I73.9 Peripheral vascular disease, unspecified; Z79.01 Long term (current) use of anticoagulants; Z79.82 Long term (current) use of aspirin; R80.9 Proteinuria, unspecified
CPT/HCPCS: J3480; J7050